=== PATIENT | male | born 1990 | race Caucasian/White ===

== ENCOUNTER 2016-12-07 16:04 | Emergency (ER) | payer SELFPAY ==
[~2016-12-07] VITALS: Ht 170.2 cm; Wt 88.5 kg
[~2016-12-07 16:04] MED LIST: CEPH500C PO
--- NOTE | 2016-12-07 16:44 | ED Chest Pain ---
General Chief Complaint: Chest Wall/Rib Pain Stated Complaint: CHEST PAIN X3 DAYS Nursing Triage Note: ARRIVED VIA AMB TO ROOM 05. COMPLAINTS OF CHEST PAIN OFF AND ON FOR 3 DAYS. DENIES CP AT THIS TIME ET PAIN IS REPRODUCABLE. Nursing Sepsis Screen: No Definite Risk Source: patient Exam Limitations: no limitations History of Present Illness Time seen by provider: 16:30 Initial Comments 25-year-old male patient presents to the emergency department complaints of chest pain at the left sternal border which is been intermittent for 4-6 months. States over the last 3 days has become more frequent. Denies any current chest pain. Denies shortness of air, palpitations, syncope, fever. Patient does have a history of cough, but states he has a history of asthma and quit smoking one month ago. Location Injury Occurred: denies known injury Timing/Duration: intermittent Severity/Quality: aching Location: other (left sternal border) Radiation: no radiation Activities at Onset: none Prior CP/Workup: echocardiography (echo in 2010 for a heart murmur that was found when he was a child.) Modifying Factors: worse with palpation ASA po JOB TRAINING SUPERVISOR: No NTG SL JOB TRAINING SUPERVISOR: No Allergies and Home Medications Allergies Coded Allergies: Codeine (Unverified Allergy, Mild, 04/06/10) Diphenhydramine (Unverified Allergy, Mild, HYSTERIA, 01/30/09) Uncoded Allergies: [id number] (SULFA (SULFONAMIDE ANTIBIOTICS)) (Allergy, Mild, 01/30/09) Home Medications Cyclobenzaprine HCl 10 Mg Tablet, 10 MG PO Q8H PRN for SPASMS, #14 Ref 0 Prescribed by: MINGO PLAZA on 12/07/161744 Naproxen 500 Mg Tablet, 500 MG PO BID PRN for pain, #20 Ref 0 Prescribed by: MINGO PLAZA on 12/07/161744 Prednisone 20 Mg Tab, 40 MG PO DAILY, #10 Ref 0 Prescribed by: MINGO PLAZA on 12/07/161744 Review of Systems Constitutional: No chills, No dizziness, No fever, No malaise EENTM: No Symptoms Reported Respiratory: See HPI, Denies Orthopnea, Denies Shortness of Air, Denies SOA With Exertion, Denies Wheezing Cardiovascular: See HPI, Chest Pain, Denies Edema, Denies Irregular Heart Rate , Denies Lightheadedness, Denies Palpitations, Denies Syncope Gastrointestinal: Denies Abdominal Pain, Denies Constipated, Denies Diarrhea, Denies Nausea, Denies Vomiting Musculoskeletal: no symptoms reported Skin: no symptoms reported Psychiatric/Neurological: No Symptoms Reported All Other Systems Reviewed Negative Unless Noted: Yes (Negative excepted noted.) Past Dswbyap-Znlozr-Ogvcxw Hx Patient Social History Alcohol Use: Denies Use Recreational Drug Use: No Smoking Status: Former Smoker Recent Foreign Travel: No Contact w/Someone Who Travel: No Recent Infectious Disease Expo: No Surgeries HX Surgeries: No Respiratory Hx Respiratory Disorders: Yes Respiratory Disorders: Asthma Cardiovascular Hx Cardiac Disorders: Yes Cardiac Disorders: Heart Murmur Neurological Hx Neurological Disorders: No Gastrointestinal Hx Gastrointestinal Disorders: No Musculoskeletal Hx Musculoskeletal Disorders: No Reviewed Nursing Assessment Reviewed/Agree w Nursing PMH: Yes Family Medical History Significant Family History: No Pertinent Family Hx Physical Exam Vital Signs Vital Sign - Last 12Hours 12/07/16 16:19 Temp 98.0 Pulse 102 Resp 16 B/P (MAP) 138/87 Pulse Ox 98 O2 Delivery Room Air Capillary Refill : Less Than 3 Seconds General Appearance: No Apparent Distress, WD/WN HEENT: PERRL/EOMI, Pharynx Normal Neck: Normal Inspection, Supple Respiratory: Lungs Clear, Normal Breath Sounds, No Accessory Muscle Use, No Respiratory Distress, Other (left lateral border of the sternum TTP with mild tenderness over the left anterior ribs. No evidence of trauma noted.) Cardiovascular: Regular Rate, Rhythm, No Edema, No Gallop, No Murmur, Normal Peripheral Pulses Gastrointestinal: Normal Bowel Sounds, No Organomegaly, No Pulsatile Mass, Non Tender, Soft Extremity: Normal Capillary Refill, No Pedal Edema Neurologic/Psychiatric: Alert, Oriented x3, Normal Mood/Affect Skin: Normal Color, Warm/Dry Progress/Results/Core Measures Results/Orders Lab Results Laboratory Tests Test 12/07/16 17:05 Range/Units White Blood Count 5.4 4.3-11.0 10^3/uL Red Blood Count 5.26 4.35-5.85 10^6/uL Hemoglobin 15.7 13.3-17.7 G/DL Hematocrit 46 40-54 % Mean Corpuscular Volume 87 80-99 FL Mean Corpuscular Hemoglobin 30 25-34 PG Mean Corpuscular Hemoglobin Concent 34 32-36 G/DL Red Cell Distribution Width 13.6 10.0-14.5 % Platelet Count 284 130-400 10^3/uL Mean Platelet Volume 9.0 7.4-10.4 FL Neutrophils (%) (Auto) 61 42-75 % Lymphocytes (%) (Auto) 29 12-44 % Monocytes (%) (Auto) 6 0-12 % Eosinophils (%) (Auto) 3 0-10 % Basophils (%) (Auto) 1 0-10 % Neutrophils # (Auto) 3.3 1.8-7.8 X 10^3 Lymphocytes # (Auto) 1.6 1.0-4.0 X 10^3 Monocytes # (Auto) 0.3 0.0-1.0 X 10^3 Eosinophils # (Auto) 0.2 0.0-0.3 10^3/uL Basophils # (Auto) 0.1 0.0-0.1 10^3/uL Sodium Level 140 135-145 MMOL/L Potassium Level 3.9 3.6-5.0 MMOL/L Chloride Level 109 H 98-107 MMOL/L Carbon Dioxide Level 21 21-32 MMOL/L Anion Gap 10 5-14 MMOL/L Blood Urea Nitrogen 9 7-18 MG/DL Creatinine 0.96 0.60-1.30 MG/DL Estimat Glomerular Filtration Rate > 60 BUN/Creatinine Ratio 9 Glucose Level 96 70-105 MG/DL Calcium Level 9.4 8.5-10.1 MG/DL Magnesium Level 2.3 1.8-2.4 MG/DL Total Bilirubin 0.6 0.1-1.0 MG/DL Aspartate Amino Transf (AST/SGOT) 17 5-34 U/L Alanine Aminotransferase (ALT/SGPT) 20 0-55 U/L Alkaline Phosphatase 55 40-136 U/L Troponin I < 0.30 <0.30 NG/ML Total Protein 7.4 6.4-8.2 GM/DL Albumin 4.5 3.2-4.5 GM/DL TSH [place] Testing 1.10 0.35-4.94 UIU/ML My Orders Orders - MINGO PLAZA Cbc With Automated Diff (12/07/16 16:42) Comprehensive Metabolic Panel (12/07/16 16:42) Magnesium (12/07/16 16:42) Thyroid Analyzer (12/07/16 16:42) Troponin I (12/07/16 16:42) Ekg Tracing (12/07/16 16:42) Chest 1 View, Ap/Pa Only (12/07/16 16:42) Vital Signs/I&O Vital Sign - Last 12Hours 12/07/16 12/07/16 16:19 18:03 Temp 98.0 Pulse 102 96 Resp 16 18 B/P (MAP) 138/87 Pulse Ox 98 98 O2 Delivery Room Air Blood Pressure Mean: 104 ECG Initial ECG Impression Date: Dec 07, 2016 Initial ECG Impression Time: 16:53 Initial ECG Rate: 88 Initial ECG Rhythm: Normal Sinus Initial ECG Comparisson: No Previous ECG Available Comment Sinus rhythm. No STEMI or arrhythmia noted. ECG reviewed and discussed with Benjamin Mckeon MD. Diagnostic Imaging Diagonstic Imaging: Xray Plain Films/CT/US/NM/MRI: chest Comments FINDINGS: Single frontal view of the chest demonstrates normal heart size and pulmonary vascularity. The lungs are well aerated and clear. No large pleural effusion or pneumothorax is seen. The visualized osseous structures show no acute abnormalities. IMPRESSION: 1. No acute cardiopulmonary process. Dictated on workstation # [id number] Reviewed: Reviewed by Me (radiology report reviewed by me.) Departure Communication Progress Notes All laboratory and diagnostic findings were discussed with the patient. Patient continues to refuse the for pain medication. Plan for discharge to home with follow-up as an outpatient with the primary care physician of his choice if needed. All return precautions were discussed with the patient as described in the discharge instructions of this report. Patient voices understanding and agrees with the treatment plan. Impression Impression: Primary Impression: Costochondritis Disposition: 01 HOME, SELF-CARE Condition: Improved Departure-Patient Inst. Decision time for Depature: 17:44 Referrals: NO,LOCAL PHYSICIAN (PCP/Family) Primary Care Physician Patient Instructions: Costochondritis (DC) Add. Discharge Instructions: All discharge instructions reviewed with patient and/or family. Voiced understanding. Medications as instructed. Tylenol Extra Strength over-the- counter as directed for pain. Avoid heavy lifting, pushing, pulling for 3-5 days. Increase activity as tolerated. Heating pads or packs as needed for pain. Follow-up with family practitioner if no improvement in symptoms in 7-10 days. Return to the emergency department for worsened symptoms, fever, shortness of air, palpitations, or any other concerns. Scripts Prednisone (Prednisone) 20 Mg Tab 40 MG PO DAILY, #10 TAB 0 Refills Prov: MINGO PLAZA 12/07/16 Naproxen (Naprosyn) 500 Mg Tablet 500 MG PO BID Y for pain, #20 TAB 0 Refills Prov: MINGO PLAZA 12/07/16 Cyclobenzaprine HCl (Cyclobenzaprine HCl) 10 Mg Tablet 10 MG PO Q8H Y for SPASMS, #14 TAB 0 Refills Prov: MINGO PLAZA 12/07/16 Work/School Note: Local Medical Staff Listing MINGO PLAZA Dec 07, 2016 16:44
[2016-12-07 17:11] LABS: BASOPHILS # (AUTO) 0.1 10^3/uL (0.0-0.1); BASOPHILS % (AUTO) 1 % (0-10); EOSINOPHILS # (AUTO) 0.2 10^3/uL (0.0-0.3); EOSINOPHILS % (AUTO) 3 % (0-10); LYMPHOCYTES # (AUTO) 1.6 X 10^3 (1.0-4.0); LYMPHOCYTES % (AUTO) 29 % (12-44); MEAN CORPUSCULAR HEMOGLOBIN 30 PG (25-34); MEAN CORPUSCULAR HGB CONC 34 G/DL (32-36); MEAN CORPUSCULAR VOLUME 87 FL (80-99); MONOCYTES # (AUTO) 0.3 X 10^3 (0.0-1.0); MONOCYTES % (AUTO) 6 % (0-12); NEUTROPHILS # (AUTO) 3.3 X 10^3 (1.8-7.8); NEUTROPHILS % (AUTO) 61 % (42-75); PLATELET COUNT 284 10^3/uL (130-400); RED BLOOD COUNT 5.26 10^6/uL (4.35-5.85); RED CELL DISTRIBUTION WIDTH 13.6 % (10.0-14.5); WHITE BLOOD COUNT 5.4 10^3/uL (4.3-11.0)
--- NOTE | 2016-12-07 17:22 | Diagnostic Imaging Report ---
INDICATION: Chest pain. COMPARISON: None FINDINGS: Single frontal view of the chest demonstrates normal heart size and pulmonary vascularity. The lungs are well aerated and clear. No large pleural effusion or pneumothorax is seen. The visualized osseous structures show no acute abnormalities. IMPRESSION: 1. No acute cardiopulmonary process. Dictated by: Dictated on workstation # [id number]
[2016-12-07 17:28] LABS: ALANINE AMINOTRANSFERASE 20 U/L (0-55); ALBUMIN 4.5 GM/DL (3.2-4.5); ANION GAP 10 MMOL/L (5-14); ASPARTATE AMINO TRANSFERASE 17 U/L (5-34); BILIRUBIN,TOTAL 0.6 MG/DL (0.1-1.0); BLOOD UREA NITROGEN 9 MG/DL (7-18); BUN/CREATININE RATIO 9; CALCIUM 9.4 MG/DL (8.5-10.1); CARBON DIOXIDE 21 MMOL/L (21-32); CHLORIDE 109 MMOL/L (98-107); CREATININE SERUM 0.96 MG/DL (0.60-1.30); GFR ESTIMATED > 60; GLUCOSE 96 MG/DL (70-105); MAGNESIUM 2.3 MG/DL (1.8-2.4); POTASSIUM 3.9 MMOL/L (3.6-5.0); SODIUM 140 MMOL/L (135-145); TOTAL PROTEIN 7.4 GM/DL (6.4-8.2)
[2016-12-07] MEDS ORDERED: CYCL10TA9 PO (17:45)
[2016-12-07] MEDS ORDERED: NAPR500T PO (17:45)
[2016-12-07] MEDS ORDERED: PRD20T PO (17:45)
[2016-12-07 17:47] LABS: TROPONIN I < 0.30 NG/ML (<0.30)
[2016-12-07 18:03] VITALS: BP 120/90
== END 2016-12-07 18:03 | disposition home or self-care (01) ==
LOC: EDUNIT# 16:04 → ER 16:06
DX: M94.0 Chondrocostal junction syndrome [Tietze] (principal); J45.909 Unspecified asthma, uncomplicated; Z87.891 Personal history of nicotine dependence
CPT/HCPCS: 36415; 71010; 80053; 83735; 84443; 84484; 85025

== ENCOUNTER 2017-03-24 20:28 | Emergency (ER) | payer OTHER ==
[~2017-03-24] VITALS: Ht 170.2 cm; Wt 79.4 kg
[~2017-03-24 20:28] MED LIST changes: +CYCL10TA9 PO; +NAPR500T PO; +PRD20T PO
[2017-03-24] MEDS ORDERED: NAPR500T PO (20:52)
--- NOTE | 2017-03-24 20:52 | ED Chest Pain ---
General Chief Complaint: Chest Wall/Rib Pain Stated Complaint: LT SIDED RIB INJ Source: patient, other Exam Limitations: no limitations History of Present Illness Time seen by provider: 20:39 Initial Comments Patient has ER by private conveyance with his significant other and a chief complaint that a few hours prior to arrival he was at work leaning on a shovel trying to pull something back across the table and pressed against his anterior left rib cage to the edge of the table and felt a cracking popping sensation and is had some pain. He took 400 mg of ibuprofen 2 hours ago. He describes mild increase in shortness of breath. He smokes three quarters pack a day cigarettes does not regularly drink and no history of recreational drug use or marijuana use. He says he does not have any cough fevers chills, nausea, vomiting, diarrhea. No prior history of trauma or history of fractured ribs. He has an allergy to sulfa medicines. Allergies and Home Medications Allergies Coded Allergies: Codeine (Unverified Allergy, Mild, 04/06/10) Diphenhydramine (Unverified Allergy, Mild, HYSTERIA, 01/30/09) Uncoded Allergies: [id number] (SULFA (SULFONAMIDE ANTIBIOTICS)) (Allergy, Mild, 01/30/09) Home Medications Cyclobenzaprine HCl 10 Mg Tablet, 10 MG PO Q8H PRN for SPASMS, #14 Ref 0 Prescribed by: MINGO PLAZA on 12/07/161744 Naproxen 500 Mg Tablet, 500 MG PO BID PRN for pain, #20 Ref 0 Prescribed by: MINOG PLAZA on 12/07/161744 Prednisone 20 Mg Tab, 40 MG PO DAILY, #10 Ref 0 Prescribed by: MINGO PLAZA on 12/07/161744 Review of Systems Constitutional: No chills, No diaphoresis EENTM: No Blurred Vision, No Double Vision Respiratory: Cough (Baseline nonproductive), Shortness of Air (mild) Cardiovascular: See HPI, Chest Pain (left anterior chest wall at the base of the ribs) Gastrointestinal: Denies Abdomen Distended, Denies Abdominal Pain, Denies Nausea Skin: No pruritus, No rash Psychiatric/Neurological: Denies Headache, Denies Numbness, Denies Paresthesia Past Ctrzrqv-Xhdaua-Itfrbx Hx Patient Social History Alcohol Use: Occasionally Uses Recreational Drug Use: No Smoking Status: Current Everyday Smoker Type Used: Cigarettes (0.75 ppd) Recent Foreign Travel: No Contact w/Someone Who Travel: No Surgeries History of Surgeries: No Respiratory History of Respiratory Disorde: No Respiratory Disorders: Asthma Cardiovascular History of Cardiac Disorders: Yes Cardiac Disorders: Heart Murmur Neurological History of Neurological Disord: No Genitourinary History of Genitourinary Disor: No Gastrointestinal History of Gastrointestinal Di: No Musculoskeletal History of Musculoskeletal Dis: Yes (HIP PROBLEMS A CHILD) Endocrine History of Endocrine Disorders: No HEENT History of HEENT Disorders: No Cancer History of Cancer: No Psychosocial History of Psychiatric Problem: No Integumentary History of Skin or Integumenta: No Family Medical History Significant Family History: No Pertinent Family Hx Physical Exam Vital Signs Capillary Refill : General Appearance: No Apparent Distress, WD/WN HEENT: PERRL/EOMI, Pharynx Normal Neck: Full Range of Motion, Normal Inspection, Non Tender Respiratory: Lungs Clear, Normal Breath Sounds, No Accessory Muscle Use, No Respiratory Distress, No Pleural Rub, Other (anterior, left, bottom 2 ribs are tender to direct palpation mildly.) Cardiovascular: Regular Rate, Rhythm, No Edema, Normal Peripheral Pulses Gastrointestinal: Normal Bowel Sounds, Non Tender, Soft Neurologic/Psychiatric: Alert, Oriented x3 Skin: Normal Color, Warm/Dry Progress/Results/Core Measures Progress Note : Time: 20:49 Progress Note We discussed the 2 most likely diagnoses of bruised/strain/sprain rib or costochondritis versus an actual fractured rib which seems unlikely based on his mechanism. Treatment will be the same and the risk of missing a fractured rib but not x-raying would be minimal and only increase the length of healing time from typically 2 weeks to 4-6 weeks. He is okay with foregoing an x-ray at this time and just starting NSAID therapy as well as ice tonight and heat. We gave him return precautions. Departure Impression Impression: Primary Impression: Rib pain Disposition: 01 HOME, SELF-CARE Condition: Stable Departure-Patient Inst. Decision time for Depature: 20:50 Referrals: NO,LOCAL PHYSICIAN (PCP/Family) Primary Care Physician Patient Instructions: Bruised Rib (DC) Add. Discharge Instructions: The low-energy mechanism of your injury makes an fracture of your rib unlikely. I bruised rib typically will get better in a few weeks however if there is a fracture your pain and discomfort may persist up to 4-6 weeks. If he goes beyond that you'll need to follow up with your primary care physician for further evaluation. If you begin to have extreme shortness of breath, severe coughing or fever he should also follow-up with her primary care physician for further evaluation and management. You should take Naprosyn [id number] 2 tablets or the prescription 1 tablet twice a day regularly for the next 2 weeks. If you're still having pain you can use Tylenol 1000 mg every 8 hours as needed in addition to the Naprosyn. You should also use ice for 20 minutes directly over the ribs every 4-6 hours for the first several days alternated with a heating pad as needed. If you do not have ice and heating pad you can also use icy hot, Biofreeze or other similar menthol creams. All discharge instructions reviewed with patient and/or family. Voiced understanding. Scripts Naproxen (Naprosyn) 500 Mg Tablet 500 MG PO BID for 14 Days, #30 TAB 0 Refills Prov: MICHEAL SIERRA 03/24/17 Work/School Note: Work Release Form Date Seen in the Emergency Department: Mar 24, 2017 Return to Work: Mar 25, 2017 Restrictions: No Restrictions MICHEAL SIERRA Mar 24, 2017 20:52
[2017-03-24 20:55] VITALS: BP 117/82
== END 2017-03-24 20:55 | disposition home or self-care (01) ==
LOC: EDUNIT# 20:28 → ER 20:31
DX: R07.89 Other chest pain (principal); J45.909 Unspecified asthma, uncomplicated; F17.210 Nicotine dependence, cigarettes, uncomplicated
CPT/HCPCS: 99282